=== PATIENT | male | born 1995 | race African-American/Black ===

== ENCOUNTER 2019-04-16 18:06 | Emergency (ER) | payer MEDICAID ==
[~2019-04-16] VITALS: Ht 175.3 cm; Wt 109.1 kg
[2019-04-16] MEDS ORDERED: OLAN7.5T2 PO (18:18)
[2019-04-16] MEDS ORDERED: DIVA-78 PO (18:18)
[2019-04-16] MEDS ORDERED: ACETAMINOPHEN 325 MG TABLET PO ONE (22:15)
[2019-04-16] MEDS ORDERED: LIDOCAINE 5% TRANSDERMAL PATCH TD ONE (22:15)
[2019-04-16] MEDS ORDERED: ONDANSETRON HCL 4 MG/2 ML VIAL IVP ONE (22:15)
[2019-04-16] MEDS ORDERED: IBUPROFEN 400 MG TABLET PO ONE (22:30)
[2019-04-16 22:47] VITALS: BP 130/74
== END 2019-04-17 00:06 | disposition home or self-care (01) ==
LOC: EMS 18:12
DX: S76.311A Strain of muscle, fascia and tendon of the posterior muscle group at thigh level, right thigh, initial encounter (principal); F31.9 Bipolar disorder, unspecified; Z79.899 Other long term (current) drug therapy; X50.9XXA Other and unspecified overexertion or strenuous movements or postures, initial encounter; Y93.02 Activity, running; Y92.89 Other specified places as the place of occurrence of the external cause; Y99.8 Other external cause status

== ENCOUNTER 2021-11-16 18:53 | Emergency (ER) | payer MEDICAID, OTHER ==
[~2021-11-16] VITALS: Ht 185.4 cm; Wt 106.0 kg
[~2021-11-16 18:53] MED LIST: DIVA-112 PO; OLAN7.5T22 PO
[2021-11-16] MEDS ORDERED: MECLIZINE HCL 25 MG TABLET PO ONE (19:30)
[2021-11-16] MEDS ORDERED: ACETAMINOPHEN 500 MG TABLET PO ONE (19:30)
[2021-11-16] MEDS ORDERED: MAG HYDROX/AL HYDROX/SIMETH ES 30 ML SUSPENSION UDCUP PO ONE (19:30)
[2021-11-16] MEDS ORDERED: OMEPRAZOLE 20 MG CAPSULE PO ONE (19:30)
[2021-11-16 19:46] LABS: BASOPHILS % (AUTO) 0.2 % (0.0-2.0); EOSINOPHILS % (AUTO) 0.5 % (1.0-6.0); HEMATOCRIT 38.2 % (41-53); LYMPHOCYTES # (AUTO) 0.4 K/uL (1.0-4.8); MEAN CORPUSCULAR HEMOGLOBIN 27.8 pg (26.0-34.0); MEAN CORPUSCULAR HGB CONC 34.1 G/dL (31.0-37.0); MEAN CORPUSCULAR VOLUME 82 fL (80-100); MONOCYTES # (AUTO) 0.6 K/uL (0.1-1.0); MONOCYTES % (AUTO) 9.3 % (2.0-9.0); PLATELET COUNT (AUTO) 179 K/uL (150-450); RED BLOOD CELL COUNT(AUTO) 4.68 MIL/uL (4.50-5.90); RED CELL DISTRIBUTION WIDTH 13.9 % (11.5-14.5)
[2021-11-16 19:54] LABS: ANION GAP 5 mmol/L (8-16); CALCIUM, TOTAL 8.8 mg/dL (8.8-10.5); CARBON DIOXIDE 30 mmol/L (22-29); CHLORIDE 100 mmol/L (98-107); CREATININE 1.32 mg/dL (0.60-1.30); GLUCOSE,RANDOM 89 mg/dL (70-110); POTASSIUM 3.7 mmol/L (3.5-5.1); SODIUM SERUM 135 mmol/L (136-145); UREA NITROGEN, BLOOD 9 mg/dL (7-18)
[2021-11-16 19:56] LABS: GLOMERULAR FILTR. RATE CALC > 60 mL/min (>60)
[2021-11-16 19:59] LABS: ALANINE AMINOTRANSFERASE 36 U/L (12-78); ALBUMIN 3.9 g/dL (3.4-5.0); ALKALINE PHOSPHATASE 57 U/L (46-116); ASPARTATE AMINOTRANSFERASE 27 U/L (15-37); BILIRUBIN,TOTAL 0.6 mg/dL (0.1-1.0); LIPASE 62 U/L (73-393); TOTAL PROTEIN, SERUM 7.3 g/dL (6.4-8.2)
[2021-11-16 20:30] VITALS: BP 115/64
[2021-11-16] MEDS ORDERED: ACET-66 PO ×2 (20:32→20:56)
[2021-11-16] MEDS ORDERED: MECL-134 PO ×2 (20:32→20:56)
[2021-11-16] MEDS ORDERED: MAG30ORA11 PO ×2 (20:32→20:56)
[2021-11-16] MEDS ORDERED: OMEP20 PO ×2 (20:32→20:56)
== END 2021-11-16 21:11 | disposition home or self-care (01) ==
LOC: EMS 18:57
DX: R10.13 Epigastric pain (principal); K29.70 Gastritis, unspecified, without bleeding; R42 Dizziness and giddiness; F20.9 Schizophrenia, unspecified; F12.90 Cannabis use, unspecified, uncomplicated; Z86.59 Personal history of other mental and behavioral disorders
CPT/HCPCS: 80053; 83690; 85025; 93005; 99284